=== PATIENT | female | born 1990 | race Native Hawaiian/Other Pacific Islander ===

== ENCOUNTER 2016-11-03 05:21 | Emergency (ER) | payer OTHER ==
[2016-11-03 05:43] VITALS: RESP 18; O2SAT 100
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
[2016-11-03 06:55] VITALS: BP 119/78; PULSE 77; TEMP 97.8
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
== END 2016-11-03 08:04 | disposition home or self-care (01) ==
LOC: C.ER 05:21
DX: S06.0X9A Concussion with loss of consciousness of unspecified duration, initial encounter (principal); S80.12XA Contusion of left lower leg, initial encounter; S80.11XA Contusion of right lower leg, initial encounter; V49.59XA Passenger injured in collision with other motor vehicles in traffic accident, initial encounter; Y92.410 Unspecified street and highway as the place of occurrence of the external cause; R22.0 Localized swelling, mass and lump, head